=== PATIENT | male | born 2000 | race Caucasian/White ===

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

== ENCOUNTER 2020-08-03 14:35 | Emergency (ER) | payer OTHER, SELFPAY ==
[2020-08-03 14:37] VITALS: BP 135/77; PULSE 64; RESP 22; TEMP 36.9; O2SAT 100
[2020-08-03 15:21] LABS: Add Manual Diff / Slide Review NO; Alanine Aminotransferase 31 IU/L (<50); Albumin 4.7 g/dL (3.5-5.0); Albumin Globulin Ratio 1.4 (1.0-2.8); Alkaline Phosphatase 62 U/L (38-126); Aspartate Aminotransferase 30 IU/L (17-59); BUN Creatinine Ratio 16.5 (6-22); Basophils Absolute Auto 100 /uL (0-100); Basophils Percent Auto 0.9 % (0-2); Bilirubin Total 0.6 mg/dL (0.2-1.3); Blood Urea Nitrogen 14 mg/dL (9-20); Calcium 9.5 mg/dL (8.4-10.2); Carbon Dioxide 28 mmol/L (22-32); Chloride 103 mmol/L (98-107); Eosinophils Absolute Auto 100 /uL (0-450); Eosinophils Percent Auto 1.4 % (2-4); Estimated Glomerular Filt Rate > 60.0 mL/min (>60); Globulin 3.3 g/dL (1.7-4.1); Glucose 98 mg/dL (70-100); HEMOLYSIS < 15 (0-50); Hematocrit 43.5 % (41-53); Hemoglobin 14.6 g/dL (13.5-17.5); Lipase 33 U/L (23-300); Lymphocytes Absolute Auto 1900 /uL (1100-4500); Lymphocytes Percent Auto 25.1 % (25-40); Mean Corpuscular HGB Conc 33.6 % (30-36); Mean Corpuscular Hemoglobin 30.2 PG (26-34); Mean Corpuscular Volume 89.9 fL (80-100); Monocytes Absolute Auto 600 /uL (0-900); Monocytes Percent Auto 7.3 % (3-14); Neutrophils Absolute Auto 4900 /uL (1500-7000); Neutrophils Percent Auto 65.3 % (50-75); Platelet Count 233 X10^3/uL (150-400); Potassium 3.7 mmol/L (3.4-5.1); Red Blood Cell Count 4.84 X10^6/uL (4.5-5.9); Red Cell Distribution Width 13.4 % (11.6-14.8); Sodium 141 mmol/L (137-145); White Blood Cell Count 7.5 X10^3/uL (4.5-11.0)
--- NOTE | 2020-08-03 15:50 | ED_ITS ---
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 There is no significant fall injury or trauma with the episode he did not have any seizure-like activity, did not have a postictal. When he awoke and did not have any loss of urine or stool. Who is able to get back up into the vehicle and shortly thereafter had another episode of nausea with some dry heaving but did not have any repeat syncope. He describes a slight fullness in his head but no overt headache. He describes no recent fevers, cough, chills, palpitations, chest pain, nausea vomiting or diarrhea, audit exposures or drug use either prescription or illicit. He does note that he did not have any palpitations or pain before this episode the and has never had similar findings. Review of Systems Review of Systems Narrative: Remainder of complete review of systems is otherwise unremarkable except for that included in the HPI. Exam Narrative Exam Narrative: General: Healthy appearing, in no acute distress. Able to give a complete and coherent history. Well-nourished well-developed HEENT: Moist mucous membranes, normal sclera with reactive pupils, Neck: , supple Respiratory: Lungs are clear to auscultation, no wheezing no rales no rhonchi. Full and symmetrical air movement Cardiac: Regular rate and rhythm no murmurs no bruits Abdomen: Soft, nontender, good bowel tones, no flank pain Skin: Warm and dry, no rashes Neurologic: Grossly neurologically intact with no obvious asymmetries or abnormalities Extremities: No trauma, well perfused Psych: Cooperative, appropriate insight and affect Initial Vital Signs Initial Vital Signs: Vital Signs Temperature 98.4 F 08/03/20 14:37 Pulse Rate 64 08/03/20 14:37 Respiratory Rate 22 08/03/20 14:37 Blood Pressure 135/77 08/03/20 14:37 Pulse Oximetry 100 08/03/20 14:37 Course Orders Ordered: ED Orders 08/03/20 14:45 Complete Blood Count AUTO DIFF Stat Comprehensive Metabolic Panel Stat Lipase Stat 08/03/20 15:01 EKG-12 Lead Stat Vital Signs Vital signs: Vital Signs - 8 hr 08/03/20 14:37 08/03/20 16:05 Temperature 98.4 F Pulse Rate 64 Pulse Rate [Orthostatic Sitting] 63 Pulse Rate [Orthostatic Standing] 65 Respiratory Rate 22 Blood Pressure 135/77 Blood Pressure [Orthostatic Sitting] 126/77 Blood Pressure [Orthostatic Standing] 129/66 Pulse Oximetry 100 Medical Decision Making Medical Records Medical records reviewed: Yes I reviewed the patient's medical records. Lab Data Lab results reviewed: Yes I reviewed the patient's lab results. Result diagrams: 08/03/20 14:45 08/03/20 14:45 Labs: Lab Results 08/03/20 08/03/20 Range/Units 14:45 14:45 WBC 7.5 (4.5-11.0) X10^3/uL RBC 4.84 (4.5-5.9) X10^6/uL Hgb 14.6 (13.5-17.5) g/dL Hct 43.5 (41-53) % MCV 89.9 (80-100) fL MCH 30.2 (26-34) PG MCHC 33.6 (30-36) % RDW 13.4 (11.6-14.8) % Plt Count 233 (150-400) X10^3/uL Neut % (Auto) 65.3 (50-75) % Lymph % (Auto) 25.1 (25-40) % [place] % (Auto) 7.3 (3-14) % Eos % (Auto) 1.4 L (2-4) % Baso % (Auto) 0.9 (0-2) % Neut # (Auto) 4900 (9912-3387) /uL Lymph # (Auto) 1900 (1799-3961) /uL [place] # (Auto) 600 (0-900) /uL Eos # (Auto) 100 (0-450) /uL Baso # (Auto) 100 (0-100) /uL Sodium 141 (137-145) mmol/L Potassium 3.7 (3.4-5.1) mmol/L Chloride 103 (98-107) mmol/L Carbon Dioxide 28 (22-32) mmol/L BUN 14 (9-20) mg/dL Creatinine 0.85 (0.66-1.25) mg/dL Estimated GFR > 60.0 (>60) mL/min BUN/Creatinine Ratio 16.5 (6-22) Glucose 98 (70-100) mg/dL Calcium 9.5 (8.4-10.2) mg/dL Total Bilirubin 0.6 (0.2-1.3) mg/dL AST 30 (17-59) IU/L ALT 31 (<50) IU/L Alkaline Phosphatase 62 (38-126) U/L Total Protein 8.0 (6.3-8.2) g/dL Albumin 4.7 (3.5-5.0) g/dL Globulin 3.3 (1.7-4.1) g/dL Albumin/Globulin Ratio 1.4 (1.0-2.8) Lipase 33 (23-300) U/L Urine Dip Bedside Urine Glucose Negative Bedside Urine Bilirubin - Negative Bedside Urine Ketone - Negative Urine Specific [place] 1.030 Bedside Urine Occult Blood - Negative Bedside Urine pH 6 Bedside Urine Protein - Negative Bedside Urine Urobilinogen - Negative Bedside Urine Nitrite - Negative Bedside Urine Leukocytes - Negative Esterase Point of care testing: Urine Dip Bedside Urine Glucose Negative Bedside Urine Bilirubin - Negative Bedside Urine Ketone - Negative Urine Specific [place] 1.030 Bedside Urine Occult Blood - Negative Bedside Urine pH 6 Bedside Urine Protein - Negative Bedside Urine Urobilinogen - Negative Bedside Urine Nitrite - Negative Bedside Urine Leukocytes - Negative Esterase ECG Data Attestation: I personally reviewed and interpreted this ECG as follows: Interpretation: Mild sinus arrhythmia with a rate of 66 Normal intervals, normal axis No acute ischemic changes MDM Narrative Medical decision making narrative: 20-year-old gentleman had a syncopal episode preceded by some nausea and a flushed feeling. He is given a L of fluid in the emergency department feel significantly improved. He is not orthostatic at time of discharge. Labs are reassuring there is no evidence stroke, heart attack, PE, infection, significant cardiac arrhythmia or seizure. Findings reviewed with patient. Recommended that he have a good dinner and plenty of fluid this evening sleep well and see how he is feeling tomorrow. Any recurrent symptoms I suggested that he either return to the ER or follow up with his primary care physician. Discharge Plan Departure Patient Disposition: Home Clinical Impression: Syncope Qualifiers: Syncope type: unspecified Qualified Code(s): R55 - Syncope and collapse Instructions: DI for Syncope in Adults (Fainting) Activity Restrictions/Additional Instructions: Thank you for coming in today I do not have a full explanation for why you had this episode of passing out today however I do not see any evidence of life-threatening diagnosis or reason to stay in the hospital today. There is no sign of heart attack, stroke, overwhelming infection, blood clots in your lungs, or life-threatening heart rhythms Would suggest that you have a good dinner this evening plenty of fluids and see how you feel when he wake up in the morning. If you are still having recurrent symptoms, please feel free to return to the emergency room or follow up with her primary care physician. Referrals: Tushar Sousa MD [Primary Care Provider] -
[2020-08-03] MEDS: ONDANSETRON 4 MG/2 ML INJ (15:52)
[2020-08-03 16:05] VITALS: BP 126/77; BP 129/66; PULSE 63; PULSE 65
== END 2020-08-03 18:03 | disposition home or self-care (01) ==
PROVIDERS: Emergency Medicine; Emergency Provider Emergency Medicine; PCP Family Medicine
DX: R55 Syncope and collapse (principal); R42 Dizziness and giddiness; R11.0 Nausea; Y99.0 Civilian activity done for income or pay
CPT/HCPCS: 80053; 81003; 83690; 85025; 93005; 96374; 99282; 99284; J2405